=== PATIENT | male | born 1980 | race Caucasian/White ===

== ENCOUNTER 2019-11-11 17:57 | Inpatient (IN) | payer BC ==
[2019-11-11] MEDS ORDERED: PANTOPRAZOLE 40 MG/10 ML VIAL IVP STA (18:26)
[2019-11-11] MEDS ORDERED: SODIUM CHLORIDE 0.9% 1,000 ML IV STA ×2 (18:26→20:25)
[2019-11-11] MEDS ORDERED: LORazepam 2 MG/ML INJ IV PRN ×2 (18:26)
[2019-11-11] MEDS ORDERED: THIAMINE 100 MG/ML 2 ML VIAL IVP STA (18:26)
--- NOTE | 2019-11-11 18:31 | ED ---
Recheck HPI - General Chief Complaint: Recheck/Abnormal Lab/Rx Stated Complaint: abnormal labs Time Seen by Provider: 11/11/19 18:11 Source: patient, RN notes reviewed, old records reviewed Mode of arrival: ambulatory Limitations: no limitations - History of Present Illness Initial Comments: This is a 39-year-old male DF for evaluation with significant anxiety, shaking likely alcohol withdrawal. Patient is drink this morning but does not feel currently junk feels very anxious heart is elevated feels like is racing, saw primary care sent DF for further evaluation management. Patient denies any complaints of nausea vomiting diarrhea or abdominal pain no recent fevers. MD Complaint: abnormal lab (Abnormal urinalysis at primary care) -: unknown Returns Today for: Called Because of Abnormal Lab/Test Symptoms Since Prior Visit: no new symptoms Context: planned re-check Associated Symptoms: chills, nausea - Related Data Allergies Allergy/AdvReac Type Severity Reaction Status Date / Time No Known Allergies Allergy Verified 11/11/19 18:05 Review of Systems ROS Statement: Those systems with pertinent positive or pertinent negative responses have been documented in the HPI. ROS Other: All systems not noted in ROS Statement are negative. Past Medical History Past Medical History: Hypertension History of Any Multi-Drug Resistant Organisms: None Reported Additional Past Surgical History / Comment(s): right collar bone sx Past Psychological History: Anxiety Smoking Status: Never smoker Past Alcohol Use History: Abuse, Heavy Past Drug Use History: None Reported General Exam Limitations: no limitations General appearance: alert, in no apparent distress Head exam: Present: atraumatic, normocephalic, normal inspection Eye exam: Present: normal appearance, PERRL, EOMI. Absent: scleral icterus, conjunctival injection, periorbital swelling ENT exam: Present: normal exam, mucous membranes moist Neck exam: Present: normal inspection. Absent: tenderness, meningismus, lymphadenopathy Respiratory exam: Present: normal lung sounds bilaterally. Absent: respiratory distress, wheezes, rales, rhonchi, stridor Cardiovascular Exam: Present: normal rhythm, tachycardia, normal heart sounds. Absent: systolic murmur, diastolic murmur, rubs, gallop, clicks GI/Abdominal exam: Present: soft, normal bowel sounds. Absent: distended, tenderness, guarding, rebound, rigid Extremities exam: Present: normal inspection, full ROM, normal capillary refill. Absent: tenderness, pedal edema, joint swelling, calf tenderness Back exam: Present: normal inspection Neurological exam: Present: alert, oriented X3, CN II-XII intact Psychiatric exam: Present: normal affect, normal mood Skin exam: Present: warm, dry, intact, normal color. Absent: rash Course Vital Signs 11/11/19 11/11/19 18:00 20:00 Temperature 98.8 F 98.9 F Pulse Rate 123 H 102 H Respiratory 18 18 Rate Blood Pressure 196/113 174/115 O2 Sat by Pulse 99 98 Oximetry - Reevaluation(s) Reevaluation #1: 11/11/19 18:36 Medical records reviewed Medical Decision Making - Medical Decision Making 39 male DF for evaluation [place] for impending DTs to severe alcohol intoxication and use. Patient be admitted watching for seizures and electronically replacement, hydration - Lab Data Result diagrams: 11/11/19 19:23 11/11/19 19:23 Lab Results 11/11/19 11/11/19 11/11/19 Range/Units 19:23 19:23 19:23 WBC 4.1 (3.8-10.6) k/uL RBC 4.12 L (4.30-5.90) m/uL Hgb 16.1 (13.0-17.5) gm/dL Hct 41.2 (39.0-53.0) % MCV 100.0 (80.0-100.0) fL MCH 39.1 H (25.0-35.0) pg MCHC 39.1 H (31.0-37.0) g/dL RDW 13.9 (11.5-15.5) % Plt Count 99 L (150-450) k/uL Neutrophils % 63 % Lymphocytes % 28 % Monocytes % 5 % Eosinophils % 2 % Basophils % 1 % Neutrophils # 2.6 (1.3-7.7) k/uL Lymphocytes # 1.2 (1.0-4.8) k/uL Monocytes # 0.2 (0-1.0) k/uL Eosinophils # 0.1 (0-0.7) k/uL Basophils # 0.0 (0-0.2) k/uL Sodium 128 L (137-145) mmol/L Potassium 4.2 (3.5-5.1) mmol/L Chloride 97 L (98-107) mmol/L Ammonia <9 (<30) umol/L CK-MB (CK-2) (0.0-2.4) ng/mL Amylase Cancelled Lipase Cancelled 11/11/19 Range/Units 19:23 WBC (3.8-10.6) k/uL RBC (4.30-5.90) m/uL Hgb (13.0-17.5) gm/dL Hct (39.0-53.0) % MCV (80.0-100.0) fL MCH (25.0-35.0) pg MCHC (31.0-37.0) g/dL RDW (11.5-15.5) % Plt Count (150-450) k/uL Neutrophils % % Lymphocytes % % Monocytes % % Eosinophils % % Basophils % % Neutrophils # (1.3-7.7) k/uL Lymphocytes # (1.0-4.8) k/uL Monocytes # (0-1.0) k/uL Eosinophils # (0-0.7) k/uL Basophils # (0-0.2) k/uL Sodium (137-145) mmol/L Potassium (3.5-5.1) mmol/L Chloride (98-107) mmol/L Ammonia (<30) umol/L CK-MB (CK-2) 3.9 H (0.0-2.4) ng/mL Amylase Lipase Disposition Clinical Impression: Delirium tremens, Liver failure Disposition: ADMITTED IP TO THIS [facility] Condition: Good Is patient prescribed a controlled substance at d/c from ED?: No Referrals: Michael Whaley DO [Primary Care Provider] - 1-2 days
[2019-11-11 19:41] LABS: Chloride 97 mmol/L (98-107); Sodium 128 mmol/L (137-145)
[2019-11-11 19:54] LABS: Potassium 4.2 mmol/L (3.5-5.1)
[2019-11-11 20:10] LABS: Basophils % (A) 1 %; Eosinophils # (A) 0.1 k/uL (0-0.7); Eosinophils % (A) 2 %; HCT 41.2 % (39.0-53.0); HGB 16.1 gm/dL (13.0-17.5); Lymphocytes # (A) 1.2 k/uL (1.0-4.8); Lymphocytes % (A) 28 %; MCH 39.1 pg (25.0-35.0); Monocytes # (A) 0.2 k/uL (0-1.0); Monocytes % (A) 5 %; Neutrophils # (A) 2.6 k/uL (1.3-7.7); Neutrophils % (A) 63 %; Platelet Count 99 k/uL (150-450); RBC 4.12 m/uL (4.30-5.90); RDW 13.9 % (11.5-15.5); WBC 4.1 k/uL (3.8-10.6)
[2019-11-11 20:17] LABS: ALT 172 U/L (4-49); AST 337 U/L (17-59); African American GFR (CKD) >90 (>60 ml/min/1.73 sqM); Albumin 3.6 g/dL (3.5-5.0); Alcohol 55 mg/dL; Alkaline Phosphatase 224 U/L (38-126); Anion Gap 16 mmol/L; Blood Urea Nitrogen 12 mg/dL (9-20); Calcium 8.8 mg/dL (8.4-10.2); Carbon Dioxide 17 mmol/L (22-30); Creatine Kinase 242 U/L (55-170); Glucose 94 mg/dL (74-99); MCHC 39.1 g/dL (31.0-37.0); Magnesium 1.8 mg/dL (1.6-2.3); Non-African American GFR(CKD) >90 (>60 ml/min/1.73 sqM); Phosphorus 3.8 mg/dL (2.5-4.5); Total Protein 7.1 g/dL (6.3-8.2)
[2019-11-11] MEDS: LORazepam 2 MG/ML INJ IV PRN (20:18)
[2019-11-11] MEDS ORDERED: SODIUM CHLORIDE 0.9% 1,000 ML IV ONE ×2 (20:22→20:40)
[2019-11-11] MEDS ORDERED: DIAZEPAM 5 MG/ML 2 ML INJ IVP STA (20:23)
[2019-11-11] MEDS ORDERED: SODIUM CHLORIDE 0.9% 500 ML 500 ML IV STA (20:25)
[2019-11-11] MEDS ORDERED: DEXTROSE 5%-0.45% NACL 1,000 ML IV ONE (20:25)
[2019-11-11] MEDS ORDERED: SODIUM CHLORIDE 0.9% 500 ML 500 ML IV ONE (20:40)
[2019-11-11] MEDS: DIAZEPAM 5 MG/ML 2 ML INJ IVP SCH (21:54)
--- NOTE | 2019-11-11 22:39 | US ---
EXAMINATION TYPE: US gallbladder DATE OF EXAM: 11/11/2019 COMPARISON: NONE CLINICAL HISTORY: pain. RUQ pain x 3 days. Patient is a heavy drinker. EXAM MEASUREMENTS: Liver Length: 20.62 cm Gallbladder Wall: 0.36 cm CBD: 0.44 cm Right Kidney: 12.1 x 7.5 x 5.3 cm Pancreas: appears to be wnl Liver: Measures enlarged. Increased echogenicity and attenuation. Appears coarse/heterogeneous. Hypoe choic area seen adjacent to the gallbladder: 2.9 x 2.0 x 0.6 cm- ?Focal fatty sparing. Gallbladder: Minimal internal echoes seen versus artifact. Wall measures thickened. Evidence for sonographic Infante's sign: no CBD: limited Right Kidney: No hydronephrosis or masses seen. Measures slightly enlarged versus upper limits of no rmal. IMPRESSION: There is hepatomegaly. No dilated ducts. Liver is somewhat echogenic suggestive of fatty infiltration. No gallstones.
[2019-11-12] MEDS: LORazepam 2 MG/ML INJ IV PRN (02:00)
[2019-11-12] MEDS: DIAZEPAM 5 MG/ML 2 ML INJ IVP SCH ×4 (03:28→20:55)
[2019-11-12 05:44] LABS: Hepatitis A Antibody IgM Non-Reactive (Non-Reactive); Hepatitis B Core IgM Non-Reactive (Non-Reactive); Hepatitis B Surface Antigen Non-Reactive (Non-Reactive); Hepatitis C IgG Antibody Non-Reactive (Non-Reactive)
[2019-11-12] MEDS: THIAMINE 100 MG TAB PO SCH ×2 (06:33→17:28)
[2019-11-12] MEDS: MULTIVITAMINS, THERA 1 EACH TAB PO SCH (09:01)
[2019-11-12 11:18] VITALS: BMI 24.5
[2019-11-12] MEDS ORDERED: PANTOPRAZOLE 40 MG/10 ML VIAL IVP SCH (11:30)
[2019-11-12] MEDS: SODIUM CHLORIDE 0.9% 1,000 ML IV SCH ×2 (12:02→20:55)
--- NOTE | 2019-11-12 12:11 | P.HPIM ---
History of Present Illness Patient is a pleasant 39-year-old male came in the because of her elevated liver enzymes sent in from PCPs office. Patient does drink alcohol on daily basis is presently having some withdrawals patient was started on at [facility] [place] [place] protocol patient denied any fever chills nausea vomiting abdominal pain. Patient exhibits about a pint of all call every single day patient had a little small drink yesterday morning. Review of Systems REVIEW OF SYSTEMS: CONSTITUTIONAL: No fever, no malaise, no fatigue. HEENT: No recent visual problems or hearing problems. Denied any sore throat. CARDIOVASCULAR: No chest pain, orthopnea, PND, no palpitations, no syncope. PULMONARY: No shortness of breath, no cough, no hemoptysis. GASTROINTESTINAL: As mentioned in HPI NEUROLOGICAL: No headaches, no weakness, no numbness. HEMATOLOGICAL: Denies any bleeding or petechiae. GENITOURINARY: Denies any burning micturition, frequency, or urgency. MUSCULOSKELETAL/RHEUMATOLOGICAL: Denies any joint pain, swelling, or any muscle pain. ENDOCRINE: Denies any polyuria or polydipsia. The rest of the 14-point review of systems is negative. Past Medical History Past Medical History: Hypertension History of Any Multi-Drug Resistant Organisms: None Reported Past Surgical History: Orthopedic Surgery Additional Past Surgical History / Comment(s): right collar bone sx Past Anesthesia/Blood Transfusion Reactions: No Reported Reaction Past Psychological History: Anxiety Smoking Status: Never smoker Past Alcohol Use History: Abuse, Heavy Additional Past Alcohol Use History / Comment(s): pt says "i drink roughly 7 pints of liquour a week, heavier on the weekends or when Im stressed" Pt states starting this when the pandemic happened in June. Past Drug Use History: None Reported - Past Family History Father Family Medical History: Cancer Additional Family Medical History / Comment(s): colon cancer Mother Family Medical History: Hypertension Medications and Allergies Home Medications Medication Instructions Recorded Confirmed Type No Known Home Medications 11/11/19 11/11/19 History Allergies Allergy/AdvReac Type Severity Reaction Status Date / Time No Known Allergies Allergy Verified 11/11/19 20:48 Physical Exam Vitals: Vital Signs Temp Pulse Pulse Resp BP BP Pulse Ox 11/12/19 09:07 98.3 F 90 16 152/102 99 11/12/19 03:53 98.2 F 101 H 16 160/101 97 11/12/19 00:00 98.0 F 106 H 16 176/107 96 11/11/19 21:21 101 H 18 160/100 98 11/11/19 20:47 98.3 F 93 16 167/91 100 11/11/19 20:00 98.9 F 102 H 18 174/115 98 11/11/19 18:00 98.8 F 123 H 18 196/113 99 Intake and Output 11/11/19 11/12/19 11/12/19 22:59 06:59 14:59 Intake Total 4204 Output Total 800 Balance 3404 Intake: Intake, IV Titration 4204 Amount Dextrose 5%-0.45% NaCl 1, 664 000 ml @ 83 mls/hr IV . Q12H3M ONE Rx#:[id number] Sodium Chloride 0.9% 1, 1040 000 ml @ 130 mls/hr IV . Q7H42M STA Rx#:[id number] Sodium Chloride 0.9% 1, 1000 000 ml @ 999 mls/hr IV . Q1H1M ONE Rx#:[id number] Sodium Chloride 0.9% 1, 1000 000 ml @ 999 mls/hr IV . Q1H1M STA Rx#:[id number] Sodium Chloride 0.9% 500 500 ml 500 ml @ 999 mls/hr IV .Q31M ONE Rx#:[id number] Output: Urine 800 Other: Voiding Method Toilet Toilet # Voids 1 Weight 80.2 kg 80 kg 80 kg PHYSICAL EXAMINATION: GENERAL: The patient is alert and oriented x3, not in any acute distress. Well developed, well nourished. HEENT: Pupils are round and equally reacting to light. EOMI. patient has scleral icterus scleral icterus. No conjunctival pallor. Normocephalic, atraumatic. No pharyngeal erythema. No thyromegaly. CARDIOVASCULAR: S1 and S2 present. No murmurs, rubs, or gallops. PULMONARY: Chest is clear to auscultation, no wheezing or crackles. ABDOMEN: Soft, nontender, nondistended, normoactive bowel sounds. No palpable organomegaly. MUSCULOSKELETAL: No joint swelling or deformity. EXTREMITIES: No cyanosis, clubbing, or pedal edema. NEUROLOGICAL: Gross neurological examination did not reveal any focal deficits. SKIN: No rashes. Results CBC & Chem 7: 11/11/19 19:23 11/11/19 19:23 Labs: Abnormal Lab Results - Last 24 Hours (Table) 11/11/19 11/11/19 11/11/19 Range/Units 19:23 19:23 19:23 RBC 4.12 L (4.30-5.90) m/uL MCH 39.1 H (25.0-35.0) pg MCHC 39.1 H (31.0-37.0) g/dL Plt Count 99 L (150-450) k/uL Sodium 128 L (137-145) mmol/L Chloride 97 L (98-107) mmol/L Carbon Dioxide 17 L (22-30) mmol/L Creatinine 0.63 L (0.66-1.25) mg/dL Total Bilirubin 9.0 H (0.2-1.3) mg/dL AST 337 H (17-59) U/L ALT 172 H (4-49) U/L Alkaline Phosphatase 224 H (38-126) U/L Creatine Kinase 242 H (55-170) U/L CK-MB (CK-2) 3.9 H (0.0-2.4) ng/mL Thrombosis Risk Factor Assmnt - Choose All That Apply Any of the Below Risk Factors Present?: Yes Each Factor Represents 1 point: Obesity (BMI >25) Other Risk Factors: No Other congenital or acquired thrombophilia - If yes, enter type in comment: No Thrombosis Risk Factor Assessment Total Risk Factor Score: 1 Thrombosis Risk Factor Assessment Level: Low Risk Assessment and Plan Plan: -Hyponatremia appears to have some hypovolemic hyponatremia from alcoholism patient was started on IV fluids will recheck the creatinine tomorrow -Anion gap of ACIDOSIS: Secondary to alcohol expected to improve with IV fluids -Elevated liver enzymes at times a minute is: Secondary to all call he Coffee expected to improve with cessation of all call -Alcohol withdrawal patient will be on Ativan seemed to be protocol -GI prophylaxis with Protonix DVT prophylaxis Lovenox
[2019-11-13] MEDS: DIAZEPAM 5 MG/ML 2 ML INJ IVP SCH ×2 (03:29→08:58)
[2019-11-13 03:54] VITALS: TEMP 97.7
[2019-11-13] MEDS: THIAMINE 100 MG TAB PO SCH (06:12)
[2019-11-13] MEDS: SODIUM CHLORIDE 0.9% 1,000 ML IV SCH (06:13)
[2019-11-13 06:29] LABS: HCT 36.6 % (39.0-53.0); MCH 33.3 pg (25.0-35.0); MCHC 33.5 g/dL (31.0-37.0); MCV 99.4 fL (80.0-100.0); RBC 3.69 m/uL (4.30-5.90); WBC 3.2 k/uL (3.8-10.6)
[2019-11-13 06:30] LABS: HGB 12.3 gm/dL (13.0-17.5)
[2019-11-13 06:31] LABS: ALT 129 U/L (4-49); AST 247 U/L (17-59); African American GFR (CKD) >90 (>60 ml/min/1.73 sqM); Albumin 2.7 g/dL (3.5-5.0); Alkaline Phosphatase 201 U/L (38-126); Anion Gap 8 mmol/L; Blood Urea Nitrogen 2 mg/dL (9-20); Calcium 7.5 mg/dL (8.4-10.2); Carbon Dioxide 25 mmol/L (22-30); Chloride 104 mmol/L (98-107); Glucose 90 mg/dL (74-99); Non-African American GFR(CKD) >90 (>60 ml/min/1.73 sqM); Potassium 3.3 mmol/L (3.5-5.1); Sodium 137 mmol/L (137-145); Total Bilirubin 12.5 mg/dL (0.2-1.3); Total Protein 5.9 g/dL (6.3-8.2)
[2019-11-13 06:43] LABS: INR 1.1 (<1.2); Prothrombin Time 11.3 sec (9.0-12.0)
[2019-11-13] MEDS ORDERED: PANTOPRAZOLE 40 MG TABLET PO SCH (07:30)
--- NOTE | 2019-11-13 07:32 | P.CONS ---
History of Present Illness - Reason for Consult Consult date: 11/12/19 Elevated liver enzymes Requesting physician: Matt Gavin - Chief Complaint Abnormal labratory evaluation - History of Present Illness 39-year-old male with a medical history significant for anxiety and alcohol abuse who was instructed to come to the hospital for further evaluation after abnormal laboratory evaluation in the outpatient setting. The patient had blood work with his PCP with findings of elevated liver enzymes and was told to present to the hospital for further evaluation. The patient reports a significant history of alcohol use over the past 20 years, which is been worse over the past 3 years with the patient consuming a pint or more daily. The patient recently noticed a yellowing of his eyes and darkening urine. Outpatient laboratory evaluation was significant for markedly elevated liver enzymes. On presentation total bilirubin 9, alkaline phosphatase 224, AST 337 and ALT 172. Ultrasound of the abdomen significant for hepatomegaly with a normal CBD at 0.4 cm with no ductal dilation. Other laboratory evaluation significant for creatinine of 0.6, WBC 4.1, hemoglobin 16.1, platelet count 99,000 with a negative viral hepatitis screen. Review of Systems Constitutional: Denies any fatigue, change in weight Eyes: Denies any change in vision, pain denies Nose: Denies any congestion, rhinorrhea Ears: Denies any change in hearing, new onset tinnitus Lungs: Denies any wheezing, shortness of breath, cough, or hemoptysis Cardiac: Denies any pain in chest, shortness of breath, lower extremity swelling Abdomen: As per history of present illness Skin: Denies any new rashes or pruritus Genitourinary: Denies any dysuria or hematuria Psychiatric: Patient reports significant anxiety and alcohol abuse. Neuro: Denies any change in mental status, new focal deficits Past Medical History Past Medical History: Hypertension History of Any Multi-Drug Resistant Organisms: None Reported Past Surgical History: Orthopedic Surgery Additional Past Surgical History / Comment(s): right collar bone sx Past Anesthesia/Blood Transfusion Reactions: No Reported Reaction Past Psychological History: Anxiety Smoking Status: Never smoker Past Alcohol Use History: Abuse, Heavy Additional Past Alcohol Use History / Comment(s): pt says "i drink roughly 7 pints of liquour a week, heavier on the weekends or when Im stressed" Pt states starting this when the pandemic happened in June. Past Drug Use History: None Reported - Past Family History Father Family Medical History: Cancer Additional Family Medical History / Comment(s): colon cancer Mother Family Medical History: Hypertension Medications and Allergies Home Medications Medication Instructions Recorded Confirmed Type No Known Home Medications 11/11/19 11/11/19 History Allergies Allergy/AdvReac Type Severity Reaction Status Date / Time No Known Allergies Allergy Verified 11/11/19 20:48 Physical Exam Vitals: Vital Signs Temp Pulse Pulse Resp BP BP Pulse Ox 11/12/19 12:38 98.2 F 109 H 16 165/114 98 11/12/19 09:07 98.3 F 90 16 152/102 99 11/12/19 03:53 98.2 F 101 H 16 160/101 97 11/12/19 00:00 98.0 F 106 H 16 176/107 96 11/11/19 21:21 101 H 18 160/100 98 11/11/19 20:47 98.3 F 93 16 167/91 100 11/11/19 20:00 98.9 F 102 H 18 174/115 98 11/11/19 18:00 98.8 F 123 H 18 196/113 99 Intake and Output 11/12/19 11/12/19 11/12/19 06:59 14:59 22:59 Intake Total 4204 Output Total 800 Balance 3404 Intake: Intake, IV Titration 4204 Amount Dextrose 5%-0.45% NaCl 1, 664 000 ml @ 83 mls/hr IV . Q12H3M ONE Rx#:[id number] Sodium Chloride 0.9% 1, 1040 000 ml @ 130 mls/hr IV . Q7H42M STA Rx#:[id number] Sodium Chloride 0.9% 1, 1000 000 ml @ 999 mls/hr IV . Q1H1M ONE Rx#:[id number] Sodium Chloride 0.9% 1, 1000 000 ml @ 999 mls/hr IV . Q1H1M STA Rx#:[id number] Sodium Chloride 0.9% 500 500 ml 500 ml @ 999 mls/hr IV .Q31M ONE Rx#:[id number] Output: Urine 800 Other: Voiding Method Toilet Toilet # Voids 1 Weight 80 kg 80 kg Constitutional: Lying in bed in no apparent distress Head: normocephalic/atraumatic Eyes: Icterus, no injection Mouth: Moist mucous membranes Nose: No discharge noted Neck: Trachea midline, no JVD Cardiac: S1S2 appreciated. Lungs: Normal air entry in all lung griffith, no wheezing appreciated Abdomen: Soft, nontender, nondistended, normal bowel sounds. No guarding or rigidity Skin: No rashes, jaundice Neuro: Awake alert and oriented 3, no asterixis noted, no focal deficits Results CBC & Chem 7: 11/13/19 05:45 11/13/19 05:45 Labs: Abnormal Lab Results - Last 24 Hours (Table) 11/11/19 11/11/19 11/11/19 Range/Units 19:23 19:23 19:23 RBC 4.12 L (4.30-5.90) m/uL MCH 39.1 H (25.0-35.0) pg MCHC 39.1 H (31.0-37.0) g/dL Plt Count 99 L (150-450) k/uL Sodium 128 L (137-145) mmol/L Chloride 97 L (98-107) mmol/L Carbon Dioxide 17 L (22-30) mmol/L Creatinine 0.63 L (0.66-1.25) mg/dL Total Bilirubin 9.0 H (0.2-1.3) mg/dL AST 337 H (17-59) U/L ALT 172 H (4-49) U/L Alkaline Phosphatase 224 H (38-126) U/L Creatine Kinase 242 H (55-170) U/L CK-MB (CK-2) 3.9 H (0.0-2.4) ng/mL US - abdomen: report reviewed (Ultrasound of the abdomen significant for hepatomegaly with a normal CBD at 0.4 cm with no ductal dilation. ) Assessment and Plan (1) Alcoholic hepatitis without ascites Narrative/Plan: 39-year-old male with a medical history significant for anxiety and alcohol abuse who was instructed to come to the hospital for further evaluation after abnormal laboratory evaluation in the outpatient setting. The patient has a significant history for alcohol abuse and liver enzymes on presentation are consistent with acute alcoholic hepatitis. On presentation total bilirubin 9, alkaline phosphatase 224, AST 337 and ALT 172. Ultrasound of the abdomen significant for hepatomegaly with a normal CBD at 0.4 cm with no ductal dilation. Other laboratory evaluation significant for creatinine of 0.6, WBC 4.1, hemoglobin 16.1, platelet count 99,000 with a negative viral hepatitis screen. Current Visit: Yes Status: Acute Code(s): K70.10 - ALCOHOLIC HEPATITIS WITHOUT ASCITES SNOMED Code(s): 683022777 (2) Elevated liver enzymes Current Visit: Yes Status: Acute Code(s): R74.8 - ABNORMAL LEVELS OF OTHER SERUM ENZYMES SNOMED Code(s): 751691150 Plan: Supportive care Okay for diet as tolerated Alcohol abstinence Continue to monitor for signs or symptoms of alcohol withdrawal Acute viral hepatitis panel negative Ultrasound of the abdomen reviewed with no productive process or acute intrahep atic process noted Continue to monitor CBC, BMP, LFTs Full liver serology ordered Thank you for allowing us to participate in the care of the patient we will continue to follow
[2019-11-13 08:41] LABS: Platelet Count 74 k/uL (150-450)
[2019-11-13] MEDS: MULTIVITAMINS, THERA 1 EACH TAB PO SCH (08:58)
[2019-11-13] MEDS ORDERED: ENOXAPARIN 40 MG/0.4 ML SYRINGE SQ SCH (09:00)
[2019-11-13 10:26] VITALS: BP 137/93; PULSE 90; RESP 20
[2019-11-13] MEDS ORDERED: POTASSIUM CHLORIDE ER 20 MEQ TAB.ER PO STA (11:35)
--- NOTE | 2019-11-13 15:11 | P.DS ---
Providers Date of admission: 11/11/19 20:22 Attending physician: Octavio Byrne Consults: 11/11/19 20:44 Consult Physician Stat Consulting Provider: Florentino Orellana Consult Reason/Comments: liverFail Do you want consulting provider notified?: Yes Primary care physician: Michael Landry [facility] Course: 39-year-old male came in the because of her elevated liver enzymes sent in from PCPs office. Patient does drink alcohol on daily basis is presently having some withdrawals patient was started on at [facility] protocol patient denied any fever chills nausea vomiting abdominal pain. Patient exhibits about a pint of all call every single day patient had a little small drink yesterday morning. 11/13/2019 Patient liver enzymes are improving his bilirubin went up which is expected to improve in next few weeks if he quits drinking alcohol patient is willing to quit drinking alcohol completely. Patient appears to acute alcoholic hepatitis. Patient has been under a lot of stress lately patient the will be started on SSRIs for anxiety and patient will be given discussion for Ativan for both which is helpful for both that anxiety as well as alcohol withdrawals. Patient doesn't have any significant withdrawals today. Wishing to go home. PHYSICAL EXAMINATION: GENERAL: The patient is alert and oriented x3, not in any acute distress. Well developed, well nourished. HEENT: Pupils are round and equally reacting to light. EOMI. does have scleral icterus. No conjunctival pallor. Normocephalic, atraumatic. No pharyngeal erythema. No thyromegaly. CARDIOVASCULAR: S1 and S2 present. No murmurs, rubs, or gallops. PULMONARY: Chest is clear to auscultation, no wheezing or crackles. ABDOMEN: Soft, nontender, nondistended, normoactive bowel sounds. No palpable organomegaly. MUSCULOSKELETAL: No joint swelling or deformity. EXTREMITIES: No cyanosis, clubbing, or pedal edema. NEUROLOGICAL: Gross neurological examination did not reveal any focal deficits. SKIN: No rashes. Assessment and Plan Plan: -Hyponatremia hypovolemic hyponatremia proved with the fluids -Anion gap of ACIDOSIS: Improved now -Elevated liver enzymes and obstructive jaundice secondary to acute alcoholic hepatitis -Alcohol withdrawal -All colic gastritis: Patient will be discharged on Protonix Patient Condition at Discharge: Good Plan - Discharge Summary Discharge Rx Participant: Yes New Discharge Prescriptions: New LORazepam [Ativan] 1 mg PO TID PRN 3 Days #9 tab PRN Reason: Alcohol Withdrawal Citalopram Hydrobromide [Citalopram HBr] 10 mg PO DAILY #30 tablet Folic Acid 0.4 mg PO DAILY #30 tab Pantoprazole [Protonix] 40 mg PO AC-BRKFST #14 tablet. Thiamine [Vitamin B-1] 100 mg PO BID-W/MEALS #30 tab Discharge Medication List Citalopram Hydrobromide [Citalopram HBr] 10 mg PO DAILY #30 tablet 11/13/19 [Rx] Folic Acid 0.4 mg PO DAILY #30 tab 11/13/19 [Rx] LORazepam [Ativan] 1 mg PO TID PRN 3 Days #9 tab 11/13/19 [Rx] Pantoprazole [Protonix] 40 mg PO AC-BRKFST #14 tablet. 11/13/19 [Rx] Thiamine [Vitamin B-1] 100 mg PO BID-W/MEALS #30 tab 11/13/19 [Rx] Follow up Appointment(s)/Referral(s): Michael Whaley DO [Primary Care Provider] - 3 Days Florentino Orellana MD [STAFF PHYSICIAN] - 1 Week Discharge Disposition: HOME SELF-CARE
[2019-11-13 15:51] LABS: Protein, Total 5.1 g/dL (6.2-8.2)
[2019-11-13 16:11] LABS: Alpha Fetoprotein, Tumor Mkr 3.3 ng/mL (0.0-7.9)
[2019-11-13 17:13] LABS: % Iron Saturation 279.49 (15.00-50.00); Iron 109 ug/dL (65-175); Total Iron Binding Capacity <40 ug/dL (228-460)
[2019-11-14 12:54] LABS: ANA Pattern Speckled
[2019-11-14 14:26] LABS: Albumin 3.07 g/dL (3.80-4.90); Gamma Globulin 0.88 g/dL (0.70-1.50)
== END 2019-11-13 16:04 | disposition home or self-care (01) | DRG 432 ==
LOC: EC 17:57 → 3SCARD 20:22
PROVIDERS: ADMIT Hospitalist; ATTEND Hospitalist
DX: K70.10 Alcoholic hepatitis without ascites (principal); K83.1 Obstruction of bile duct; F10.231 Alcohol dependence with withdrawal delirium; E87.1 Hypo-osmolality and hyponatremia; E87.2 Acidosis; F10.229 Alcohol dependence with intoxication, unspecified; Y90.2 Blood alcohol level of 40-59 mg/100 ml; E86.1 Hypovolemia; F41.9 Anxiety disorder, unspecified; I10 Essential (primary) hypertension; K29.20 Alcoholic gastritis without bleeding; Z80.0 Family history of malignant neoplasm of digestive organs; Z82.49 Family history of ischemic heart disease and other diseases of the circulatory system; Z11.59 Encounter for screening for other viral diseases
CPT/HCPCS: 36415; 76705; 80053; 80074; 80320; 82103; 82105; 82140; 82390; 82550; 82553; 83516; 83540; 83550; 83735; 84100; 84165; 85025; 85027; 85610; 86038; 86039; 86376; 96361; 96374; 96375; 99284